=== PATIENT | male | born 2000 | race Caucasian/White ===

== ENCOUNTER 2022-06-18 13:22 | Emergency (ER) | payer SELFPAY ==
--- NOTE | 2022-06-18 13:31 | ECG_ITS ---
APPROVED REPORT Exam: Resting ECG HR:103 bpm ECG Measurements Heart Rate 103 AXES SD 157 P 63 QRSd 102 QRS 74 QT 307 T 50 QTc 366 Conclusion SINUS TACHYCARDIA POSSIBLE RIGHT VENTRICULAR CONDUCTION DELAY [RSR (QR) IN V1/V2] ABNORMAL RHYTHM ECG UNCONFIRMED REPORT Electronically signed by : Edwin Bender MD 06/18/2022 17:57:26
[2022-06-18 13:38] VITALS: BP 148/98; PULSE 107; RESP 30; TEMP 36.7; O2SAT 98; BMI 23.6
--- NOTE | 2022-06-18 13:44 | PC.NURSE ---
CARLITOS SUTTON at
--- NOTE | 2022-06-18 13:50 | HMH.EDGENADL ---
Discharge Plan Disposition Patient Disposition: Left Against Medical Advice Referrals Follow up/Referrals: Provider,MD Lala [Primary Care Provider] - See instructions Discharge ED Provider: Chaitanya Ballard General Adult HPI General Chief complaint: Anxiety Stated complaint: Seizures and vomiting Time Seen by Provider: 06/18/22 13:42 Mode of Arrival: Ambulatory Source of Information: Patient and Significant Other Limitations: No Limitations Description of Symptoms (Recalled from ER Triage Doc. by RN): Pt's girlfriend describes witnessing a seizure-like episode History of Present Illness HPI narrative: Patient presents after reportedly having had a seizure approximate 45 minutes prior to ED presentation. History is obtained by the girlfriend as the patient is a vague historian at best. History is also limited due to poor cooperation by the patient. Related Data Allergies Allergy/AdvReac Type Severity Reaction Status Date / Time morphine Allergy Verified 06/18/22 13:49 [facility] Disclaimer: The information contained in this section may have been updated after the patient was seen, as this information can be updated by other users. Social History Smoking Status: Unknown if ever smoked alcohol intake: never current occupational status: unemployed Travel in the last 8 weeks: Inside the [place] ROS Obtained: Yes other (Unable to obtain due to poor cooperation) Physical Exam General General appearance: alert and in no apparent distress Head Head exam: atraumatic, normocephalic and normal inspection Eye Eye exam: Present normal appearance, PERRL and EOMI ENT ENT exam: Present normal exam, normal oropharynx, mucous membranes moist, TM's normal bilaterally and normal external ear exam Neck Neck exam: Present normal inspection, full ROM and trachea midline; Absent meningismus or lymphadenopathy Chest Chest inspection: Present normal inspection and symmetric chest wall rise; Absent tenderness Respiratory Respiratory exam: Present normal lung sounds bilaterally; Absent respiratory distress Cardiovascular Cardiovascular exam: Present regular rate and normal rhythm; Absent JVD Abdominal Exam Abdominal exam: Present soft and normal bowel sounds; Absent distention, tenderness or guarding Extremities Exam Extremities exam: Present normal inspection, full ROM and normal capillary refill; Absent calf tenderness Back Exam Back exam: Present normal inspection; Absent tenderness Neurological Exam Neurological exam: Present alert and oriented X3 Psychiatric Psychiatric exam: Present other (Patient is oriented to person and time he would not tell me where he is however there are many questions that he did not answer.); Absent suicidal ideation Skin Skin exam: Present warm, dry, intact and normal color Lymphatic Lymphatic Findings: no adenopathy Medical Decision Making Xavier Inquiry Pt receiving controlled substance: No Vital Signs: 06/18/22 13:38 Temperature 98.0 F Temperature Source Oral Pulse Rate [Right Radial] 107 H Respiratory Rate 30 H Blood Pressure [Right Arm] 148/98 H Blood Pressure Mean [Right Arm] 114 Blood Pressure Source [Right Arm] Automatic Cuff Blood Pressure Position [Right Arm] Supine 02 Sat by Pulse Oximetry 98 Critical Care Time Critical Care Time Critical Care Time: No Attestation: On 06/18/22, the high probability of a clinically significant, sudden or life threatening deterioration of the following system(s) required my full and direct attention, intervention and personal management. The time I documented below is in addition to time spent performing reported procedures but includes the following listed in this critical care notation.
[2022-06-18 13:51] VITALS: BP 140/80; PULSE 100; RESP 26; TEMP 36.8; O2SAT 98
== END 2022-06-18 13:54 | disposition left against medical advice (07) ==
PROVIDERS: Emergency Provider Emergency Medicine
DX: G40.89 Other seizures (principal); R11.10 Vomiting, unspecified; F41.9 Anxiety disorder, unspecified
CPT/HCPCS: 93005; 99283; 99284